=== PATIENT | female | born 1990 | race Two or more races ===

== ENCOUNTER → 2019-06-19 | Emergency (ER) | payer OTHER ==
[~2019-06-19] VITALS: Ht 170.2 cm; Wt 96.2 kg
[~2019-06-19] MED LIST: DOLOGEN CAPLET1 EACH PO; TUSNEL LIQUID178 ML PO; ZITHROMAX500 MG PO
== END | disposition home or self-care (01) ==
LOC: ER 15:00
DX: J06.9 Acute upper respiratory infection, unspecified (principal)

== ENCOUNTER 2020-11-24 17:12 | Emergency (ER) | payer OTHER ==
[~2020-11-24] VITALS: Ht 162.6 cm; Wt 97.5 kg
[2020-11-24] MEDS ORDERED: PEPCID AC20 MG PO (19:13)
[2020-11-24] MEDS ORDERED: LEVSIN/SL0.125 MG SL (19:13)
[2020-11-24] MEDS ORDERED: ZOFRAN8 MG PO (19:13)
== END 2020-11-24 19:21 | disposition home or self-care (01) ==
LOC: ER 17:12
DX: K80.50 Calculus of bile duct without cholangitis or cholecystitis without obstruction (principal)

== ENCOUNTER 2022-08-17 18:49 | Emergency (ER) | payer OTHER ==
[~2022-08-17] VITALS: Ht 170.2 cm; Wt 97.5 kg
[~2022-08-17 18:49] MED LIST changes: +LEVSIN/SL0.125 MG SL; +PEPCID AC20 MG PO; +ZOFRAN8 MG PO
== END 2022-08-18 03:11 | disposition home or self-care (01) ==
LOC: ER 18:49
DX: R10.13 Epigastric pain (principal); Z88.6 Allergy status to analgesic agent